=== PATIENT | male | born 1955 | race Caucasian/White ===

== ENCOUNTER 2022-01-18 09:33 | Outpatient (CLI) | payer OTHER, MEDICAID | END 2022-01-18 20:28 | disposition home or self-care (01) | LOC: SCT 09:33 | PROVIDERS: ATTEND Family Medicine | DX: I25.10 Atherosclerotic heart disease of native coronary artery without angina pectoris (principal); R91.8 Other nonspecific abnormal finding of lung field; R07.9 Chest pain, unspecified; M47.819 Spondylosis without myelopathy or radiculopathy, site unspecified; R59.9 Enlarged lymph nodes, unspecified | CPT/HCPCS: 71250-TC; 76376 ==